=== PATIENT | male | born 1980 | race Caucasian/White ===

== ENCOUNTER 2018-11-17 21:30 | Emergency (ER) | payer BC ==
[2018-11-17 21:41] VITALS: BP 188/113
--- NOTE | 2018-11-17 22:04 | EDM.PDOC ---
ED HPI GENERAL MEDICAL PROBLEM - General Chief Complaint: Upper Extremity Injury/Pain Stated Complaint: WRIST INJURY Time Seen by Provider: 11/17/18 21:39 Source of Information: Reports: Patient, Family () History Limitations: Reports: No Limitations - History of Present Illness INITIAL COMMENTS - FREE TEXT/NARRATIVE: Mr. Pompa is a pleasant 38-year-old man with a past medical history significant only for hypertension, who states that he does not drink very often, however, he drank heavily last night and this morning. He states that when intoxicated, he apparently became clumsy and fell, although he does not actually recall the fall. He recalls getting up. He states that he noticed that he had left wrist pain when he woke up around 09:00 this morning. He indicates pain in his distal ulnar area, and he also reports that his left thumb is tingly. In addition, he also reports some left knee ache, he saw an abrasion to his right knee, however , he is able to ambulate just fine, and he is here for evaluation of his left wrist, not his knees. No prior left wrist injury. The patient's PCP is Savannah Benavides NP. Left Wrist Pain Score (Numeric/FACES): 7 - Related Data Allergies Allergy/AdvReac Type Severity Reaction Status Date / Time No Known Allergies Allergy Verified 11/17/18 21:37 Home Meds: Home Meds Lisinopril/Hctz. 1 tab PO DAILY 11/17/18 [History] Past Medical History Cardiovascular History: Reports: Hypertension Psychiatric History: Reports: Depression (remote) - Past Surgical History HEENT Surgical History: Reports: Oral Surgery (dental surgery) Social & Family History - Tobacco Use Smoking Status *Q: Current Every Day Smoker Years of Tobacco use: 22 Packs/Tins Daily: 1 - Alcohol Use Alcohol Use History: Yes Alcohol Use Frequency: Rarely (occasionally to excess) - Recreational Drug Use Recreational Drug Use: Yes Drug Use in Last 12 Months: No Recreational Drug Type: Reports: Cocaine (last snorted in his 20s), Ecstasy ( last took in his 20s), LSD (Acid) (last took in his 20s), Marijuana/Hashish ( last smoked in his 20s), Psilocybin (Mushrooms) (last took in his 20s) - Living Situation & Occupation Living situation: Reports: , with Spouse, with Family (2 sons) Occupation: Employed ([employer]) Review of Systems - Review of Systems Review Of Systems: ROS reveals no pertinent complaints other than HPI. ED EXAM, GENERAL - Physical Exam Exam: See Below Exam Limited By: No Limitations General Appearance: Alert, WD/WN, No Apparent Distress Extremities: Other (No visible abnormality to the patient's left wrist, when compared to the right, such as swelling, erythema, ecchymosis, or abrasion. There is no tenderness to direct palpation of the entire wrist or hand, and there is minimal pain to PROM of the left wrist, however, pain is induced with AROM of the left wrist. The patient reports a tingling sensation to his left thumb. Vascular status of the left upper extremity is intact.) Course - Vital Signs Last Recorded V/S: Last Vital Signs Temp Pulse 90 11/17/18 21:38 Resp 18 11/17/18 21:38 BP 188/113 H 11/17/18 21:38 Pulse Ox 98 11/17/18 21:38 - Orders/Labs/Meds Orders: Active Orders 24 hr Category Date Time Status Wrist Comp Min 3V Lt [CR] Stat Exams 11/17/18 21:56 Ordered - Re-Assessments/Exams Free Text/Narrative Re-Assessment/Exam: 11/17/18 22:22 The patient's physical exam is most consistent with a tendinous injury, not ligamentous or bony injury, however, the patient's preferred that we check x-rays. 4-view radiographs of the left wrist appear to be normal. No fracture or dislocation identified. Formal read per the radiologist. I will recommend that the patient ice his left wrist for couple of days, and take [id number] ibuprofen. A splint is not necessary. 11/17/18 22:29 The patient requested a note off of work tomorrow. Departure - Departure Time of Disposition: 22:23 Disposition: Home, Self-Care 01 Condition: Good Clinical Impression: Left wrist tendinitis - Discharge Information *PRESCRIPTION DRUG MONITORING PROGRAM REVIEWED*: Not Applicable *COPY OF PRESCRIPTION DRUG MONITORING REPORT IN PATIENT [place]OR[place]: Not Applicable Referrals: Savannah Benavides MD [Ordering Only Provider] - Forms: ED Department Discharge, ED Return to Work/School Form Additional Instructions: You were seen in the emergency room after falling down early this morning and injuring your left wrist. Workup in the ER included x-rays of your left wrist, which returned normal. No broken bones or dislocations were found. Based on your history, physical exam, and ER x-rays, you most likely have tendinitis of your left wrist. We recommend that you ice your left wrist for the next 2 days, and take over-the -counter ibuprofen, 2-3 tablets (400-600 mg) every 8 hours, with food, as needed for discomfort. You may use your wrist as tolerated. A note for work has been provided to you. If any other problems, please do not hesitate to return to the ER. - My Orders Last 24 Hours: My Active Orders 11/17/18 21:56 Wrist Comp Min 3V Lt [CR] Stat - Assessment/Plan Last 24 Hours: My Active Orders 11/17/18 21:56 Wrist Comp Min 3V Lt [CR] Stat
--- NOTE | 2018-11-19 06:54 | CR ---
Left wrist: Four views of the left wrist were obtained. Comparison: No prior wrist exam. Cyst is noted within the distal navicular bone. Joint spaces are fairly well preserved. No discrete fracture, dislocation or other bony abnormality is seen. Impression: 1. Navicular cyst. No definite acute abnormality is appreciated. Diagnostic code #2
== END 2018-11-17 22:35 | disposition home or self-care (01) ==
LOC: JD.ED 21:30
DX: M77.9 Enthesopathy, unspecified (principal); I10 Essential (primary) hypertension; F17.210 Nicotine dependence, cigarettes, uncomplicated; Z79.899 Other long term (current) drug therapy
CPT/HCPCS: 73110-26-LT; 73110-LT; 99283-25